=== PATIENT | female | born 1985 | race African-American/Black ===

== ENCOUNTER 2017-10-15 05:03 | Emergency (ER) | payer MEDICAID ==
[~2017-10-15] VITALS: Ht 162.6 cm; Wt 107.0 kg
[2017-10-15] MEDS ORDERED: ONDANSETRON HCL 4MG/2ML INJ IV STA (06:57)
[2017-10-15] MEDS ORDERED: SODIUM CHLORIDE 0.9% 1,000 ML IV ONE (06:57)
[2017-10-15] MEDS ORDERED: FAMOTIDINE 20MG/2ML VIAL IV STA (06:57)
[2017-10-15 07:18] LABS: CLARITY URINE CLOUDY (CLEAR); COLOR URINE YELLOW (YELLOW); KETONES URINE NEGATIVE (NEGATIVE); LEUKOCYTE ESTERASE URINE NEGATIVE (NEGATIVE); NITRITE URINE NEGATIVE (NEGATIVE); OCCULT BLOOD URINE 1+ (NEGATIVE); PROTEIN URINE NEGATIVE (NEGATIVE); SPECIFIC GRAVITY URINE 1.019 (1.005-1.030); UROBILINOGEN URINE 0.2 E.U./dL (0.2-1.0)
[2017-10-15 07:49] LABS: CHLORIDE 104 mEq/L (98-107)
[2017-10-15 07:50] LABS: BASOPHILS % 0.7 % (0.0-2.0); EOSINOPHILS % 8.3 % (0.0-5.0); HEMATOCRIT. 35.4 % (36.0-48.0); HEMOGLOBIN. 11.5 g/dL (12.0-16.0); LYMPHOCYTES % 32.6 % (20.0-50.0); MEAN CORPUSCULAR HEMOGLOBIN 26.4 pg (28.0-32.0); MEAN CORPUSCULAR VOLUME 81.1 fL (81.0-99.0); MEAN PLATELET VOLUME 8.1 fl (7.4-10.4); MONOCYTES % 5.3 % (2.0-8.0); NEUTROPHILS % 53.1 % (40.0-76.0); PLATELET 397 x1000/uL (130-400); PROTHROMBIN TIME 9.7 sec (9.1-11.1); RED BLOOD CELL COUNT 4.37 mill/uL (4.2-5.4)
[2017-10-15] MEDS ORDERED: KETOROLAC 30MG/ML VIAL IV ONE (08:15)
[2017-10-15 09:41] VITALS: BP 148/79
== END 2017-10-15 09:46 | disposition home or self-care (01) ==
LOC: ER 08:03
DX: K80.20 Calculus of gallbladder without cholecystitis without obstruction (principal); R05 Cough; R03.0 Elevated blood-pressure reading, without diagnosis of hypertension
CPT/HCPCS: 36415; 71045; 76705; 80053; 81003; 81025; 83690; 85025; 85610; 93005; 96374; 96375; 99285; J1885; J2405; J3490; J7030; Z7610

== ENCOUNTER 2018-06-03 01:06 | Emergency (ER) | payer OTHER, MEDICAID ==
[~2018-06-03] VITALS: Ht 162.6 cm; Wt 114.0 kg
[2018-06-03] MEDS ORDERED: SODIUM CHLORIDE 0.9% 1,000 ML IV ONE (05:00)
[2018-06-03 05:26] LABS: KETONES URINE NEGATIVE (NEGATIVE); LEUKOCYTE ESTERASE URINE TRACE (NEGATIVE); NITRITE URINE NEGATIVE (NEGATIVE); OCCULT BLOOD URINE 3+ (NEGATIVE); PROTEIN URINE 2+ (NEGATIVE); SPECIFIC GRAVITY URINE 1.014 (1.005-1.030); UROBILINOGEN URINE 0.2 E.U./dL (0.2-1.0)
[2018-06-03 05:29] LABS: CLARITY URINE TURBID (CLEAR); COLOR URINE RED (YELLOW)
[2018-06-03 05:30] LABS: CHLORIDE 108 mEq/L (98-107)
[2018-06-03 05:37] LABS: HCG SCREEN NEGATIVE
[2018-06-03 05:43] LABS: BASOPHILS % 1.1 % (0.0-2.0); EOSINOPHILS % 1.9 % (0.0-5.0); HEMATOCRIT. 34.1 % (36.0-48.0); HEMOGLOBIN. 11.1 g/dL (12.0-16.0); LYMPHOCYTES % 34.2 % (20.0-50.0); MEAN CORPUSCULAR VOLUME 77.3 fL (81.0-99.0); MONOCYTES % 4.5 % (2.0-8.0); NEUTROPHILS % 58.3 % (40.0-76.0); PLATELET 424 x1000/uL (130-400); RED BLOOD CELL COUNT 4.42 mill/uL (4.2-5.4); RED CELL DISTRIBUTION WIDTH 15.5 % (11.6-14.6)
[2018-06-03] MEDS ORDERED: KETOROLAC 30MG/ML VIAL IV ONE (07:00)
[2018-06-03 07:09] VITALS: BP 123/65
== END 2018-06-03 07:16 | disposition home or self-care (01) ==
LOC: ER 01:06
DX: R51 Headache (principal); Z91.048 Other nonmedicinal substance allergy status
CPT/HCPCS: 36415; 80048; 81003; 81025; 84703; 85025; 96374; 99283; J1885; J7030; Z7610